=== PATIENT | female | born 1980 | race Caucasian/White ===

== ENCOUNTER 2016-05-30 07:09 | Emergency (ER) | payer OTHER ==
[2016-05-30 07:23] VITALS: BP 115/67
--- NOTE | 2016-05-30 07:42 | UC ---
Eye Complaint HPI - HPI Summary HPI Summary: 2 DAYS OF BILATERAL EYE REDNESS AND IRRITATION. SOME CLEAR DRAINAGE. ALSO HAS MILD NASAL CONGESTION. NO VISUAL DISTURBANCES, JENKINS, NAUSEA OR PHOTOPHOBIA. NO FEVER. HAS A 1 YR OLD AT HOME WITH A COLD. - History of Current Complaint Chief Complaint: UCEye Stated Complaint: EYE COMPLAINT Time Seen by Provider: 05/30/16 07:34 Hx Obtained From: Patient Hx Last Menstrual Period: 05/25/16 Onset/Duration: Gradual Onset, Lasting Days, Still Present Timing: Constant Severity Initially: Mild Severity Currently: Mild Pain Intensity: 0 Pain Scale Used: 0-10 Numeric Location of Injury: Conjunctiva Aggravating Factor(s): Blinking Alleviating Factor(s): Nothing Associated Signs And Symptoms: Positive: Drainage (Clear). Negative: Photophobia, Drainage (Purulent), Vision Impairment Bilateral, Vision Impairment Right, Vision Impairment Left, Fever, Swelling - Allergies/Home Medications Allergies/Adverse Reactions: Allergies Allergy/AdvReac Type Severity Reaction Status Date / Time No Known Allergies Allergy Verified 05/30/16 07:15 Home Medications: Home Medications Vitamin TAB* 1 tab PO 05/30/16 [History] PMH/Surg Hx/FS Hx/Imm Hx Previously Healthy: Yes - Surgical History Surgical History: Yes Surgery Procedure, Year, and Place: Gallbladder removed 2009. Tonsils 2000 - Family History Known Family History: Negative: Hypertension - Social History Alcohol Use: None Substance Use Type: None Smoking Status (MU): Never Smoked Tobacco - Immunization History Most Recent Influenza Vaccination: doesn't get Review of Systems Constitutional: Negative Eyes: Drainage, Eye Redness ENT: Negative Respiratory: Negative Cardiovascular: Negative Gastrointestinal: Negative All Other Systems Reviewed And Are Negative: Yes Physical Exam Triage Information Reviewed: Yes Appearance: Well-Appearing, No Pain Distress, Well-Nourished Vital Signs: Initial Vital Signs Temp 98.0 F 05/30/16 07:16 Pulse 90 05/30/16 07:16 Resp 17 05/30/16 07:16 BP 115/67 05/30/16 07:16 Pulse Ox 99 05/30/16 07:16 Vital Signs Reviewed: Yes Eyes: Positive: Conjunctiva Inflamed, Other: - PERRL, EOMI. Negative: Discharge ENT: Positive: Hearing grossly normal, Pharynx normal, TMs normal Neck: Positive: Supple, Nontender, No Lymphadenopathy Respiratory Exam: Normal Cardiovascular Exam: Normal Abdomen Description: Positive: Soft Musculoskeletal: Positive: No Edema Neurological: Positive: Alert Psychological: Positive: Age Appropriate Behavior Skin: Negative: rashes Eye Complaint Course/Dx - Differential Dx/Diagnosis Provider Diagnoses: BILATERAL CONJUNCTIVITIS Discharge - Discharge Plan Condition: Stable Disposition: HOME Prescriptions: Ciprofloxacin 0.3% OPTH.ADEEL* [Cipro 0.3% Opth*] 1 drop BOTH EYES Q4H #1 btl Patient Education Materials: Conjunctivitis (ED) Referrals: No Cortes MD [Medical Doctor] -
== END 2016-05-30 07:52 | disposition home or self-care (01) ==
LOC: UCEAST 07:09
DX: H10.33 Unspecified acute conjunctivitis, bilateral (principal); Z90.49 Acquired absence of other specified parts of digestive tract
CPT/HCPCS: 99212; G0463

== ENCOUNTER 2017-08-01 20:46 | Emergency (ER) | payer OTHER ==
[2017-08-01] MEDS ORDERED: Metoclopramide IV* 5 MG/ML 2 ML VIAL IV SLOW PU ONE (21:38)
[2017-08-01] MEDS ORDERED: Acetaminophen TAB* 325 MG PO ONE (21:38)
[2017-08-01 21:49] LABS: Urine Appearance Clear; Urine Blood Negative (Negative); Urine Color Yellow; Urine Ketones Negative (Negative); Urine Protein Negative (Negative); Urine Urobilinogen Negative (Negative)
[2017-08-01 22:08] LABS: ABS Basophils 0 10^3/ul (0-0.2); ABS Eosinophils 0 10^3/ul (0-0.6); ABS Lymphocytes 2.2 10^3/ul (1.0-4.8); ABS Monocytes 0.6 10^3/ul (0-0.8); ABS Neutrophils 13.1 10^3/ul (1.5-7.7); ABS Nucleated RBC 0 10^3/ul; Eosinophil % 0.2 % (0-6); Hematocrit 36 % (35-47); Hemoglobin 11.9 g/dl (12.0-16.0); Lymphocyte % 13.6 % (25-47); Mean Corpuscular HGB Conc 34 g/dl (31-36); Mean Corpuscular Hemoglobin 29 pg (27-31); Mean Corpuscular Volume 87 fL (80-97); Mean Platelet Volume 9.4 um3 (7.4-10.4); Nucleated Red Blood Cells % 0; Platelet Count 262 10^3/ul (150-450); Red Blood Count 4.09 10^6/ul (4.0-5.4); Red Cell Distribution Width 15 % (10.5-15)
[2017-08-01 22:36] LABS: EGFR Non-African American 130.5 (>60)
[2017-08-02 00:22] VITALS: BP 118/76
--- NOTE | 2017-08-02 00:26 | ED ---
Yamel Degroot Rebecca, scribed for Eileen Jaeger MD on 08/01/17 at 2129 . Abdominal Pain/Female - HPI Summary HPI Summary: Pt is a 36 y/o F who presents to ED c/o abdominal pain. Sx began yesterday, resolving last night and this morning, worsening today after lunch at 1300. Reports she had chicken with beans for lunch today. Pain is in the upper abdomen and is currently moderate, ranked 7/10 and radiates down her side, without radiation to the back or arm. Sx aggravated by her lunch today, alleviated after vomiting. Additionally c/o N/V. Denies decreased appetite, reporting that she is hungry. Pt is 30 weeks and this is her second . PSHx cholecystectomy. A0. - History of Current Complaint Chief Complaint: EDAbdPain Stated Complaint: ABD PAIN 30 WKS PREG Time Seen by Provider: 08/01/17 21:21 Hx Obtained From: Patient Hx Last Menstrual Period: 05/25/16 Onset/Duration: Lasting Days - 1 day, Still Present Severity Currently: Moderate Pain Intensity: 7 Pain Scale Used: 0-10 Numeric Location: Epigastric Radiates: Yes Radiates to: Other - Down her side Aggravating Factor(s): Food Alleviating Factor(s): Vomiting Associated Signs and Symptoms: Positive: Vomiting Allergies/Adverse Reactions: Allergies Allergy/AdvReac Type Severity Reaction Status Date / Time No Known Allergies Allergy Verified 08/01/17 20:51 PMH/Surg Hx/FS Hx/Imm Hx Endocrine/Hematology History: Denies: Hx Diabetes Cardiovascular History: Denies: Hx Hypertension - Surgical History Surgery Procedure, Year, and Place: Gallbladder removed 2009. Tonsils 2000 Infectious Disease History: No Infectious Disease History: Denies: Traveled Outside the [place] in Last 30 Days - Family History Known Family History: Negative: Hypertension, Diabetes - Social History Alcohol Use: None Substance Use Type: Reports: None Smoking Status (MU): Never Smoked Tobacco Review of Systems Negative: Fever Positive: Abdominal Pain, Vomiting, Nausea, Other - NEGATIVE: Decreased appetite All Other Systems Reviewed And Are Negative: Yes Physical Exam - Summary Physical Exam Summary: VITAL SIGNS: Reviewed. GENERAL: ~Patient is a well-developed and nourished female who is lying comfortable in the stretcher. Patient is not in any acute respiratory distress. HEAD AND FACE: No signs of trauma. No ecchymosis, hematomas or skull depressions. No sinus tenderness. EYES: PERRLA, EOMI x 2, No injected conjunctiva, no nystagmus. EARS: Hearing grossly intact. Ear canals and tympanic membranes are within normal limits. MOUTH: Oropharynx within normal limits. NECK: Supple, trachea is midline, no adenopathy, no JVD, no carotid bruit, no c- spine tenderness, neck with full ROM. CHEST: Symmetric, no tenderness at palpation LUNGS: Clear to auscultation bilaterally. No wheezing or crackles. CVS: Regular rate and rhythm, S1 and S2 present, no murmurs or gallops appreciated. ABDOMEN: Soft, mild RUQ tenderness. Fundal length is about 30 weeks. No rebound no guarding, and no masses palpated. Bowel sounds are normal. EXTREMITIES: FROM in all major joints, no edema, no cyanosis or clubbing. NEURO: Alert and oriented x 3. No acute neurological deficits. Speech is normal and follows commands. SKIN: Dry and warm Triage Information Reviewed: Yes Vital Signs On Initial Exam: Initial Vitals Temp Pulse Resp BP Pulse Ox 98.1 F 71 18 146/85 99 08/01/17 20:48 08/01/17 20:48 08/01/17 20:48 08/01/17 20:48 08/01/17 20:48 Vital Signs Reviewed: Yes Diagnostics - Vital Signs Vital Signs Temp Pulse Resp BP Pulse Ox 08/01/17 20:48 98.1 F 71 18 146/85 99 - Laboratory Result Diagrams: 08/01/17 22:00 08/01/17 22:00 Lab Statement: Any lab studies that have been ordered have been reviewed, and results considered in the medical decision making process. - Ultrasound No standard instances Ultrasound Interpretation: No Acute Changes - Gallbladder surgically absent. No evidence of biliary obstruction. Pancreas obscured by bowel gas. Hepatomegaly and hepatic steatosis. Spleen unremarkable. Kidneys are within normal limits without hydronephrosis. Minimal right pelviectasis. ED physician reviewed this radiology report. Pending official report. Ultrasound Interpretation Completed By: Radiologist Re-Evaluation - Re-Evaluation First Eval Re-Evaluation Time: 23:57 Change: Improved Comment: Discussed results and D/C plan. Pt continues to be hungry. Abdominal Pain Fem Course/Dx - Course Course Of Treatment: Pt is a 36 y/o F who presents to ED c/o abdominal pain since yesterday, resolving last night and this morning, worsening today after lunch at 1300. Pain is in the upper abdomen and is currently moderate, ranked 7/ 10 and radiates down her side, without radiation to the back or arm. Sx aggravated by her lunch today, alleviated after vomiting. Additionally c/o N/V. Denies decreased appetite, reporting that she is hungry. Pt is 30 weeks and this is her second . PSHx cholecystectomy. A0. Abdomen US revealed no acute findings. WBC of 16. UA is negative. In the ED course, pt received Tylenol and Reglan which improved symptoms. Pt will be D/C to home with Dx of RUQ abdominal pain with a followup with her [facility] tomorrow. She understands and agrees. - Diagnoses Provider Diagnoses: RUQ abdominal pain Discharge - Sign-Out/Discharge Documenting (check all that apply): Discharge - Discharge - Discharge Plan Condition: Stable Disposition: HOME Patient Education Materials: Abdominal Pain in (ED) Referrals: No Cortes MD [Primary Care Provider] - 3 Days Additional Instructions: Follow up with your [facility] tomorrow. RETURN TO EMERGENCY DEPARTMENT FOR ANY NEW OR WORSENING SYMPTOMS The documentation as recorded by the Yamel olivia Rebecca accurately reflects the service I personally performed and the decisions made by me, Eileen Jaeger MD.
--- NOTE | 2017-08-02 07:39 | RAD ---
INDICATION: Abdominal pain. COMPARISON: There are no prior studies available for comparison. TECHNIQUE: Multiple real-time images of the abdomen were obtained. FINDINGS: The liver is mildly enlarged and increased in echogenicity suggestive of fatty infiltration. No focal abnormality is seen. The patient is status post cholecystectomy. No intra or extrahepatic ductal distention is present. The common bile duct measured 0.5 cm in diameter. The pancreas is obscured by overlying bowel gas. The kidneys are normal in size shape and echogenicity. The right kidney measured 11.6 x 5.1 x 4.9 cm and the left kidney measured 12.1 x 4.9 x 6.0 cm. No hydronephrosis or significant focal renal abnormality is seen. There is minimal fullness in the region of the right renal pelvis. The spleen is normal in size without focal abnormality measuring 12.0 x 6.0 x 10.1 cm. The proximal portion of the abdominal aorta is visualized and is within normal limits measuring maximum diameter 1.8 cm. IMPRESSION: 1. MILD HEPATOMEGALY AND HEPATIC STEATOSIS. 2. STATUS POST CHOLECYSTECTOMY.
== END 2017-08-02 00:20 | disposition home or self-care (01) ==
LOC: ED 20:46
DX: R11.2 Nausea with vomiting, unspecified (principal); R10.11 Right upper quadrant pain
CPT/HCPCS: 36415; 76700; 80053; 81003; 82150; 83690; 85025; 86140; 96374; 99282; A9270-GY